=== PATIENT | female | born 1975 | race Two or more races ===

== ENCOUNTER 2017-11-04 13:21 | Inpatient (IN) | payer OTHER ==
[~2017-11-04] VITALS: Ht 160 cm; Wt 101.0 kg
[2017-11-04 13:41] VITALS: Ht 160 cm; Wt 101.0 kg
[2017-11-04 14:33] LABS: BASOPHIL % 0.5 % (0-2); PLATELET COUNT 233 x10^3mcL (130-400); RED CELL DISTRIBUTION WIDTH 13.1 % (11.5-14.5)
[2017-11-04 14:46] LABS: UA SPECIFIC GRAVITY 1.025 (1.005-1.035); microscopic required? YES; urine erythrocyte NEGATIVE (NEGATIVE)
[2017-11-04 14:48] LABS: CALCIUM 8.4 mg/dL (8.5-10.1); CARBON DIOXIDE 27.6 mmol/L (21-32); CHLORIDE SERUM 97 mmol/L (98-107); CREATININE SERUM 0.7 mg/dL (0.6-1.0); GFR1 > 60 mL/min; GLUCOSE SERUM 254 mg/dL (74-106); SODIUM SERUM 133 mmol/L (136-145)
[2017-11-04 14:54] LABS: ALKALINE PHOSPHATASE 85 U/L (46-116); ALT/SGPT 51 U/L (14-59); AST/SGOT 33 U/L (15-37); BILIRUBIN TOTAL 0.2 mg/dL (0.20-1.00); TOTAL PROTEIN, SERUM 7.9 g/dL (6.4-8.2)
[2017-11-04 14:55] LABS: ALBUMIN 3.3 g/dL (3.4-5.0)
[2017-11-04] MEDS ORDERED: ATENOLOL25 MG PO (16:09)
[2017-11-04] MEDS ORDERED: LISINOPRIL10 MG PO (16:09)
[2017-11-04] MEDS ORDERED: METFORMIN HCL1000 MG PO (16:09)
[2017-11-04] MEDS ORDERED: ALDACTONE25 MG PO (16:46)
[2017-11-04] MEDS ORDERED: DIALYVITE 8001 TAB PO (16:46)
[2017-11-04] MEDS ORDERED: PHOSLO667 MG PO (16:46)
[2017-11-04] MEDS ORDERED: SIMVASTATIN80 M1 PO (16:46)
[2017-11-04] MEDS ORDERED: LISINOPRIL20 MG PO (16:48)
[2017-11-04] MEDS ORDERED: NOR5 PO (16:48)
[2017-11-04] MEDS ORDERED: CLONIDINE HCL0.2 MG PO (16:48)
[2017-11-04] MEDS ORDERED: ALLOPURINOL100 MG PO (16:49)
[2017-11-04] MEDS ORDERED: HYDRALAZINE HC100 MG PO (16:49)
[2017-11-04 17:27] LABS: CHOLESTEROL 194 mg/dL (<200); MAGNESIUM 1.5 mg/dL (1.8-2.4); PHOSPHOROUS 2.6 mg/dL (2.5-4.9)
[2017-11-04 17:33] VITALS: BP 128/69
[2017-11-04 17:36] LABS: CHOLESTEROL/HDL RATIO 6.9; HDL CHOLESTEROL 28 mg/dL (40-60); TRIGLYCERIDES 470 mg/dL (<150)
[2017-11-04 17:37] LABS: FREE T4 0.99 ng/dL (0.76-1.46); FREE THYROXINE INDEX 2.3 ug/dL (1.4-4.5); T3 TOTAL 1.15 ng/mL; T4(THYROXINE) 8.7 ug/dL (4.7-13.3)
[2017-11-04 21:19] VITALS: BP 128/71
[2017-11-04 22:12] VITALS: BP 128/71
[2017-11-05 05:40] VITALS: BP 122/66
[2017-11-05 06:04] LABS: BASOPHIL % 0.2 % (0-2); PLATELET COUNT 204 x10^3mcL (130-400); RED CELL DISTRIBUTION WIDTH 13.1 % (11.5-14.5)
[2017-11-05 06:30] LABS: CALCIUM 7.8 mg/dL (8.5-10.1); CHLORIDE SERUM 103 mmol/L (98-107); CREATININE SERUM 0.6 mg/dL (0.6-1.0); GFR1 > 60 mL/min; GLUCOSE SERUM 224 mg/dL (74-106); MAGNESIUM 1.9 mg/dL (1.8-2.4); SODIUM SERUM 136 mmol/L (136-145)
[2017-11-05 10:10] VITALS: BP 119/37
[2017-11-05 12:20] VITALS: BP 131/65
[2017-11-05] MEDS ORDERED: ATORVASTATIN CA40 M1 PO (12:50)
[2017-11-05] MEDS ORDERED: GLU5 PO (12:51)
[2017-11-05 13:19] VITALS: BP 131/65
== END 2017-11-05 14:05 | disposition home or self-care (01) | DRG 205 ==
LOC: ED 13:21 → DU 16:30
PROVIDERS: Emergency Medicine; Family Medicine
DX: M94.0 Chondrocostal junction syndrome [Tietze] (principal); N17.0 Acute kidney failure with tubular necrosis; E44.0 Moderate protein-calorie malnutrition; E87.1 Hypo-osmolality and hyponatremia; M10.9 Gout, unspecified; E78.1 Pure hyperglyceridemia; E83.42 Hypomagnesemia; I11.0 Hypertensive heart disease with heart failure; E11.9 Type 2 diabetes mellitus without complications; Z79.899 Other long term (current) drug therapy; Z79.84 Long term (current) use of oral hypoglycemic drugs; Z82.49 Family history of ischemic heart disease and other diseases of the circulatory system; Z88.1 Allergy status to other antibiotic agents; Z91.14 Patient's other noncompliance with medication regimen; Z68.38 Body mass index [BMI] 38.0-38.9, adult
CPT/HCPCS: 84439; G0378; J2405; J3475; J7030; J7613; J7620; J7644; Q0092